=== PATIENT | female | born 1990 | race American Indian/Alaskan Native ===

== ENCOUNTER 2018-03-07 21:41 | Inpatient (IN) | payer MEDICAID, OTHER ==
[2018-03-07] MEDS ORDERED: LACTATED RINGERS 1,000 ML IV ONE (21:53)
[2018-03-07] MEDS ORDERED: NITRATEST PAPER MC ONE (21:54)
[2018-03-07] MEDS ORDERED: BRETHINE SUB-Q PRN (22:08)
[2018-03-07] MEDS ORDERED: POLYCILLIN/NS 2 GM/100 ML 2 GM/100 ML BAG IV ONE (22:08)
[2018-03-07] MEDS ORDERED: BRETHINE IVP PRN (22:08)
[2018-03-07] MEDS ORDERED: XYLOCAINE 2% INFILTRATI ONE (22:08)
[2018-03-07] MEDS ORDERED: ePHEDrine SULFATE IV PRN (22:08)
[2018-03-07] MEDS ORDERED: MINERAL OIL PO PRN (22:08)
[2018-03-07 22:54] LABS: Hematocrit 31.1 % (30.3-42.9); Hemoglobin 10.3 gm/dl (10.1-14.3); Mean Corpuscular HGB Conc 33 % (30-34); Mean Corpuscular Hemoglobin 30 pg (28-32); Mean Corpuscular Volume 92 fl (79-97); Red Blood Count 3.38 M/mm3 (3.65-5.03); Red Cell Distribution Width 15.1 % (13.2-15.2)
[2018-03-07] MEDS ORDERED: LACTATED RINGERS 1,000 ML IV SCH (23:00)
[2018-03-07] MEDS ORDERED: PITOCin/NS 20 UNIT/1000ML DRIP 20 UNITS/1,000 ML BAG IV SCH (23:00)
--- NOTE | 2018-03-07 23:34 | History and Physical Report ---
History of Present Illness Date of examination: 03/07/18 Date of admission: 03/07/18 22:09 Chief complaint: My water broke History of present illness: Patient is a 27-year-old 7 para 3 who presented to labor and delivery with complaint of rupture of membranes and contractions. She claims she received care at [facility] however according to the records she had only scant care. She reports rupture of membranes at approximately 1 PM today however she didn't present until approximately 10 PM. She was found to be 6 cm and actively ely. Past History Past Medical History: no pertinent history Past Surgical History: other [employer]HY History: other Family/Genetic History: other Social history: single - Obstetrical History Expected Date of Delivery: 04/28/18 Actual Gestation: 32 Week(s) 4 Day(s) : 7 Para: 3 Number of Living Children: 3 Medications and Allergies Allergies Allergy/AdvReac Type Severity Reaction Status Date / Time No Known Allergies Allergy Unverified 09/02/16 21:33 Home Medications Medication Instructions Recorded Confirmed Last Taken Type Calcium-Pnv 28-1-250 mg Sftgl 1 tab PO DAILY 09/03/16 09/03/16 2 Days Ago History ~09/01/16 Ferrous Sulfate [Feosol 325 MG tab] 325 mg PO BID #90 tablet 09/04/16 Unknown Rx Pnv,Calcium 72/Iron,Carb/Folic 1 each PO QDAY #90 tablet 09/04/16 Unknown Rx [ Plus Iron Tablet] Active Meds: Active Medications Ephedrine Sulfate (Ephedrine Sulfate) 10 mg IV Q2M PRN PRN Reason: Hypotension Ampicillin Sodium (Ampicillin/Ns 1 Gm/50 Ml) 1 gm in 50 mls @ 100 mls/hr IV Q4HR NICOLE; Protocol Lactated Ringer's (Lactated Ringers) 1,000 mls @ 125 mls/hr IV DIRECT NICOLE Oxytocin/Sodium Chloride (Pitocin/Ns 20 Unit/1000ml Drip) 20 units in 1,000 mls @ 125 mls/hr IV DIRECT NICOLE Mineral Oil (Mineral Oil) 30 ml PO QHS PRN PRN Reason: Constipation Terbutaline Sulfate (Brethine) 0.25 mg SUB-Q ONCE PRN PRN Reason: Hyperstimulation/Hypertonicity Terbutaline Sulfate (Brethine) 0.25 mg IVP ONCE PRN PRN Reason: Hyperstimulation/Hypertonicity Review of Systems All systems: negative Genitourinary: leakage of fluid, contractions Rectal Exam: deferred - Vital Signs Vital signs: Vital Signs Pulse Pulse Ox 85 96 03/07/18 21:57 03/07/18 21:57 Temp Pulse Resp BP Pulse Ox 98.6 F 77 2 L 113/63 92 03/07/18 22:20 03/07/18 23:24 03/07/18 23:10 03/07/18 23:22 03/07/18 23:24 - Physical Exam Breasts: Positive: deferred Cardiovascular: Regular rate, Normal S1, Normal S2 Lungs: Positive: Clear to auscultation, Normal air movement Abdomen: Positive: normal appearance, soft, normal bowel sounds Genitourinary (Female): Positive: normal external genitalia, normal perenium Vulva: right: normal Uterus: Positive: normal size Extremities: Positive: normal Deep Tendon Reflex Grade: Normal +2 Results Result Diagrams: 03/07/18 22:25 Abnormal lab results 03/07/18 Range/Units 22:25 RBC 3.38 L (3.65-5.03) M/mm3 All other labs normal. Assessment and Plan Iup at 32.4 weeks here for active labor and prom. Admit to L&D. Treat for GBs if possible. Anticipate .
[2018-03-07 23:48] LABS: Platelet Count 174 K/mm3 (140-440)
--- NOTE | 2018-03-07 23:53 | Procedure Note ---
OB Delivery Note - Delivery Date of Delivery: 03/07/18 Surgeon: BRANDI PAIZ Estimated blood loss: 200cc - Vaginal Delivery presentation: vertex Delivery position: OA Intrapartum events: no care, labor-<37 weeks, PROM->1hr before delivery, precipitous labor- <3hr Delivery induction: none Delivery monitor: external FHT, external uterine Route of delivery: Delivery placenta: spontaneous Delivery cord: 3 umbilical vessels Episiotomy: none Delivery laceration: none Anesthesia: none Delivery comments: Viable male delivered over intact perineum. Weight 4 pounds 5 ounces. [id number]. Placenta delivered spontaneously and intact with three-vessel cord. No lacerations noted. Excellent hemostasis. The patient tolerated the procedure well.
[2018-03-08] MEDS ORDERED: LANSINOH TP PRN (01:11)
[2018-03-08] MEDS ORDERED: BENADRYL PO PRN (01:11)
[2018-03-08] MEDS ORDERED: ZOFRAN IV PRN (01:11)
[2018-03-08] MEDS ORDERED: TYLENOL PO PRN (01:11)
[2018-03-08] MEDS ORDERED: PHENERGAN PO PRN (01:11)
[2018-03-08] MEDS ORDERED: DULCOLAX PR PRN (01:11)
[2018-03-08] MEDS ORDERED: PHENERGAN PR PRN (01:11)
[2018-03-08] MEDS ORDERED: MILK OF MAGNESIA PO PRN (01:11)
[2018-03-08] MEDS ORDERED: TUCKS PAD TP PRN (01:11)
[2018-03-08] MEDS ORDERED: SODIUM CHLORIDE FLUSH SYRINGE 10 ML IV NR (01:11)
[2018-03-08 01:15] LABS: Bilirubin,Urine NEG (Negative); Blood,Urine SM (Negative); Color,Urine Yellow (Yellow); Mucus,Urine 1+ /HPF; Protein,Urine <15 mg/dL mg/dL (Negative); Urobilinogen,Urine < 2.0 mg/dL (<2.0)
[2018-03-08 01:20] LABS: Amphetamine Screen,Urine PRESUMPTIVE NEGATIVE; Benzodiazepines Screen,Urine PRESUMPTIVE NEGATIVE; Cocaine Screen,Urine PRESUMPTIVE NEGATIVE; Methadone Screen,Urine PRESUMPTIVE NEGATIVE; Opiate Screen,Urine PRESUMPTIVE NEGATIVE
[2018-03-08 02:02] LABS: Cannabinoid Screen,Urine PRESUMPTIVE POSITIVE
[2018-03-08] MEDS ORDERED: AMPICILLIN/NS 1 GM/50 ML 1 GM/50 ML BAG IV SCH (02:09)
[2018-03-08] MEDS: NORCO 5/325 PO PRN ×2 (02:17→21:52)
[2018-03-08] MEDS: MOTRIN PO SCH ×3 (09:44→23:27)
[2018-03-08] MEDS: COLACE PO SCH ×2 (09:45→21:52)
[2018-03-08] MEDS ORDERED: PRENATAL VITAMIN PO SCH (10:00)
[2018-03-08 12:47] LABS: Hematocrit 23.5 % (30.3-42.9); Hemoglobin 7.6 gm/dl (10.1-14.3)
--- NOTE | 2018-03-08 20:48 | Progress Note ---
Assessment and Plan PPD 1 s/p at 32 weeks with no care. Plan for discharge on tomorrow, . Subjective - Subjective Date of service: 03/08/18 Principal diagnosis: delivery, Insufficient care Interval history: Patient is a 27-year-old 7 para 3 who presented to labor and delivery with complaint of rupture of membranes and contractions. She claims she received care at [facility] however according to the records she had only scant care. She reports rupture of membranes at approximately 1 PM today however she didn't present until approximately 10 PM. She was found to be 6 cm and actively ely. Patient reports: appetite normal, voiding normally, pain well controlled [place]: in NICU Objective - Vital Signs Latest vital signs: Vital Signs Temp Pulse Resp BP BP Pulse Ox 03/08/18 17:36 20 03/08/18 16:12 98.7 F 61 16 95/50 99 03/08/18 12:04 97.8 F 64 16 101/53 97 03/08/18 09:44 20 03/08/18 07:54 98.3 F 66 20 95/49 97 03/08/18 04:15 98.7 F 69 16 101/78 03/08/18 01:00 98.6 F 74 18 104/51 03/08/18 00:39 69 100 03/08/18 00:38 71 102/57 03/08/18 00:34 68 100 03/08/18 00:29 68 99 03/08/18 00:24 70 100 03/08/18 00:22 68 119/58 03/08/18 00:07 61 119/63 03/07/18 23:52 59 L 118/65 03/07/18 23:37 59 L 111/65 03/07/18 23:24 77 92 03/07/18 23:23 71 96 03/07/18 23:22 61 113/63 03/07/18 23:18 64 100 03/07/18 23:13 69 100 03/07/18 23:10 2 L 03/07/18 23:08 72 106/56 100 03/07/18 23:03 73 107/55 03/07/18 22:51 80 100 03/07/18 22:20 98.6 F 03/07/18 21:57 85 96 Intake and Output 03/08/18 03/08/1803/08/18 06:59 14:59 22:59 Intake Total 500 600 360 Output Total 600 Balance -100 600 360 Intake: Oral 200 600 360 Intake, Free Water 300 Output: Urine 600 Void 600 Other: Total, Intake Amount 200 240 360 Total, Output Amount 600 # Voids Void 1 1 1 Estimated Blood Loss 300 - Exam Breasts: Present: deferred Cardiovascular: Present: Regular rate, Normal S1, Normal S2 Lungs: Present: Clear to auscultation, Normal air movement Abdomen: Present: normal appearance, soft, normal bowel sounds Uterus: Present: normal, firm, fundal height below umbilicus - Labs Labs: Abnormal lab results 03/07/18 03/08/18 03/08/18 Range/Units 22:25 00:33 12:06 RBC 3.38 L (3.65-5.03) M/mm3 Hgb 7.6 L (10.1-14.3) gm/dl Hct 23.5 L D (30.3-42.9) % Urine WBC (Auto) 11.0 H (0.0-6.0) /HPF
[2018-03-09] MEDS: MOTRIN PO SCH (05:36)
[2018-03-09] MEDS ORDERED: BOOSTRIX IM ONE (06:00)
--- NOTE | 2018-03-09 08:12 | Progress Note ---
Assessment and Plan PPD 2 s/p . Doing well. Had conversation with patient about future plans and contraception. patient states that she does not want anymore children. I advised patient that her medicaid was currently inactive and that she would need to activate it to get a tubal. I also advised patient that the waiting period was 30 days after papers were signed. Patient agrees to Depo Provera on today to prevent at least for 3 months and give patient a chance to get affairs in order. Subjective - Subjective Date of service: 03/09/18 Principal diagnosis: delivery, Insufficient care Interval history: Patient is a 27-year-old 7 para 3 who presented to labor and delivery with complaint of rupture of membranes and contractions. She claims she received care at [facility] however according to the records she had only scant care. She reports rupture of membranes at approximately 1 PM today however she didn't present until approximately 10 PM. She was found to be 6 cm and actively ely. Patient reports: appetite normal, voiding normally, pain well controlled, ambulating normally [place]: in NICU Objective - Vital Signs Latest vital signs: Vital Signs Temp Pulse Resp BP BP Pulse Ox 03/09/18 06:36 20 03/09/18 00:27 18 03/09/18 00:00 98.7 F 74 18 104/78 03/08/18 17:36 20 03/08/18 16:12 98.7 F 61 16 95/50 99 03/08/18 12:04 97.8 F 64 16 101/53 97 03/08/18 09:44 20 Intake and Output 03/08/18 03/09/18 03/09/18 22:59 06:59 14:59 Intake Total 360 600 Balance 360 600 Intake: Oral 360 Intake, Free Water 600 Other: Total, Intake Amount 360 # Voids Void 1 - Exam Lungs: Present: Clear to auscultation, Normal air movement Abdomen: Present: normal appearance, soft Uterus: Present: normal, firm, fundal height below umbilicus Extremities: Present: normal - Labs Labs: Abnormal lab results 03/08/18 Range/Units 12:06 Hgb 7.6 L (10.1-14.3) gm/dl Hct 23.5 L D (30.3-42.9) %
--- NOTE | 2018-03-09 08:14 | Discharge Summary ---
Providers - Providers Date of Admission: 03/07/18 22:09 Date of discharge: 03/09/18 Attending physician: BRANDI PAIZ 03/08/18 07:37 Consult to Case Management [CONS] Routine Services Needed at Discharge: [facility] Notified:: [phone] Phone number called:: [phone] Additional Physician Instructions: positive drug screen Primary care physician: BRANDI PAIZ Hospitalization Reason for admission: IUP - , labor Delivery: Other procedures: none complications: none Discharge diagnosis: delivery [place] baby: male Hospital course: unremarkable Condition at discharge: Good Disposition: DC-01 TO HOME OR SELFCARE Plan - Provider Discharge Summary Activity: routine, no sex for 6 weeks, no heavy lifting 4 weeks, no strenuous exercise Diet: routine Instructions: routine Additional instructions: [] Smoking cessation referral if applicable(refer to patient education folder for contact #) [] Refer to [facility]'s [facility] Booklet Call your doctor immediately for: * Fever > 100.5 * Heavy vaginal bleeding ( >1 pad per hour) * Severe persistent headache * Shortness of breath * Reddened, hot, painful area to leg or breast * Drainage or odor from incision. * Keep incision clean and dry at all times and follow doctor's instructions regarding bathing/showering Please call [facility] clerk or [facility] to establish care and see about getting your tubes tied - Follow up plan Follow up: BRANDI PAIZ MD [Primary Care Provider] - 6 Weeks
[2018-03-09] MEDS ORDERED: DEPO-PROVERA (CONTRACEPTION) IM NR (08:30)
[2018-03-09 11:22] VITALS: BP 103/51
== END 2018-03-09 11:30 | disposition home or self-care (01) | DRG 775 ==
LOC: TRG 21:41 → LD 22:09 → OB 03-08 01:02
PROVIDERS: ADMIT Obstetrics & Gynecology; ATTEND Obstetrics & Gynecology
PROC: 10E0XZZ Delivery of Products of Conception, External Approach (ICD-10-PCS; principal; 2018-03-07)
PROC: 3E0234Z Introduction of Serum, Toxoid and Vaccine into Muscle, Percutaneous Approach (ICD-10-PCS; 2018-03-09)
DX: O42.913 Preterm premature rupture of membranes, unspecified as to length of time between rupture and onset of labor, third trimester (principal); Z3A.32 32 weeks gestation of pregnancy; Z37.0 Single live birth; Z23 Encounter for immunization; Z79.899 Other long term (current) drug therapy
CPT/HCPCS: 36415; 80307; 81001; 85014; 85018; 85027; 86592; 86706; 86762; 86850; 86900; 86901; 87806; 88307; 90471; 90715; 99211; G0463; J0290; J1050; J2590; J7120